=== PATIENT | female | born 1985 | race Two or more races ===

== ENCOUNTER 2022-07-20 10:50 | Emergency (ER) | payer OTHER ==
[~2022-07-20] VITALS: Ht 162.6 cm; Wt 90.7 kg
[2022-07-20] MEDS ORDERED: LEXAPRO5 MG PO (11:19)
[2022-07-20] MEDS ORDERED: PERCOCET 5-3251 EACH PO (15:57)
== END 2022-07-20 19:41 | disposition home or self-care (01) ==
LOC: ER 10:50
DX: S93.492A Sprain of other ligament of left ankle, initial encounter (principal); W18.39XA Other fall on same level, initial encounter; Y93.89 Activity, other specified; Y92.89 Other specified places as the place of occurrence of the external cause; S82.62XA Displaced fracture of lateral malleolus of left fibula, initial encounter for closed fracture; S82.492A Other fracture of shaft of left fibula, initial encounter for closed fracture; S82.52XA Displaced fracture of medial malleolus of left tibia, initial encounter for closed fracture; Z88.2 Allergy status to sulfonamides